=== PATIENT | female | born 1990 | race African-American/Black ===

== ENCOUNTER 2019-01-05 09:03 | Emergency (ER) | payer MEDICAID ==
[~2019-01-05] VITALS: Ht 165.1 cm; Wt 113.0 kg
[2019-01-05] MEDS ORDERED: PREDNISONE 20MG TABLET PO STA (10:26)
[2019-01-05] MEDS ORDERED: IPRATROPIUM BROMIDE (0.02%) 0.5MG/2.5ML NEB HHN STA (10:26)
[2019-01-05] MEDS ORDERED: ALBUTEROL (0.083%) 2.5MG/3ML NEB HHN STA ×2 (10:26→11:04)
[2019-01-05 12:35] VITALS: BP 144/90
== END 2019-01-05 12:39 | disposition home or self-care (01) ==
LOC: ER 09:24 → CANBEDREQ 10:47 → ER 12:39
DX: J45.901 Unspecified asthma with (acute) exacerbation (principal); J45.909 Unspecified asthma, uncomplicated; I10 Essential (primary) hypertension; Z98.890 Other specified postprocedural states
CPT/HCPCS: 81025; 94640; 99284; J7512; J7611; Z7610